=== PATIENT | female | born 1940 | race Caucasian/White ===

== ENCOUNTER 2018-03-28 11:43 | Inpatient (IN) | payer MEDICARE, OTHER ==
--- NOTE | 2018-03-28 12:11 | ED ---
Head Injury - HPI Summary HPI Summary: This patient is a 77 year old F presenting to [facility] accompanied by her aide with a chief complaint of fall and associated head injury at an unknown time ( LKW 1600 03/27/18). Pt does not know what happened to her. Pt lives in [facility]. Pt fell but does not remember the event. Pt has a bump on her head but denies BONE. She denies neck pain. The pt endorses general body pain, but she attributes this to being moved around so much. This pt was found in the bathroom on the ground this AM. Pt was unresponsive upon aide arrival. The aide believes she may have been on the floor all night, as she was not in her pajamas. This week, the pt has displayed increased confusion, decreased mobility , and decreased appetite from baseline. - History Of Current Complaint Chief Complaint: EDSyncope Stated Complaint: FALL Time Seen by Provider: 03/28/18 11:54 Hx Obtained From: Patient, Family/Yard Supervisor [employer] Mechanism Of Injury: Direct Blow, Unknown Onset/Duration: Still Present Severity Currently: Mild Severity Initially: Mild Pain Intensity: 0 Pain Scale Used: 0-10 Numeric Location of Head Injury: Temporal Character: Other: - no pain Associated Signs And Symptoms: LOC Duration Unknown, Confusion, Memory Loss, Swelling - Allergies/Home Medications Allergies/Adverse Reactions: Allergies Allergy/AdvReac Type Severity Reaction Status Date / Time Penicillins Allergy Intermediate Hives Verified 03/28/18 15:09 Sulfa (Sulfonamide Allergy Intermediate Hives Verified 03/28/18 15:09 Antibiotics) PMH/Surg Hx/FS Hx/Imm Hx Endocrine/Hematology History: Reports: Hx Anemia Musculoskeletal History: Reports: Hx Arthritis, Hx Back Problems - DDD Sensory History: Reports: Hx Cataracts, Hx Contacts or Glasses Denies: Hx Deafness Opthamlomology History: Reports: Hx Cataracts, Hx Contacts or Glasses EENT History: Denies: Hx Deafness Psychiatric History: Denies: Hx Autism - Cancer History Hx Chemotherapy: No Hx Radiation Therapy: No - Surgical History Surgery Procedure, Year, and Place: TONSILLECTOMY, CATARACT SURGERY Infectious Disease History: No Infectious Disease History: Denies: Traveled Outside the [place] in Last 30 Days - Family History Known Family History: Positive: Cardiac Disease - MOTHER PA 84, Renal Disease - KIDNEY FAILURE, Other - SCOLIOSIS - Social History Occupation: Retired Lives: Assisted Living Alcohol Use: None Hx Substance Use: No Substance Use Type: Reports: None Hx Tobacco Use: No Smoking Status (MU): Former Smoker Review of Systems Negative: Fever Positive: Other - decreased appetite Positive: no symptoms reported Positive: Edema - BLE. Negative: Arthralgia - neck Positive: Bruising - head, left side, hematoma Neurological: Other - amnesia, confusion, unresponsive (resolved) Positive: Syncope. Negative: Headache All Other Systems Reviewed And Are Negative: Yes Physical Exam - Summary Physical Exam Summary: Appearance: The patient is cachectic in no acute distress and in no acute pain. Skin: The skin is warm and dry and skin color reflects adequate perfusion. There is a cephalohematoma on the left temporal area. HEENT: The head is normocephalic. There is a cephalohematoma on the left temporal area. The pupils are equal and reactive. The conjunctivae are clear and without drainage. Nares are patent and without drainage. Mouth reveals moist mucous membranes and the throat is without erythema and exudate. The external ears are intact. The ear canals are patent and without drainage. The tympanic membranes are intact. Neck: The neck is supple with full range of motion and non-tender. There are no carotid bruits. There is no neck vein distension. Respiratory: Chest is non-tender. Lungs are clear to auscultation and breath sounds are symmetrical and equal. Cardiovascular: Heart is regular rate and rhythm. There is no murmur or rub auscultated. There is bilateral peripheral edema and pulses are symmetrical and equal. Abdomen: The abdomen is soft and non-tender. There are normal bowel sounds heard in all four quadrants and there is no organomegaly palpated. Musculoskeletal: There is no back tenderness noted. Extremities are non-tender with full range of motion. There is good capillary refill. There is bilateral peripheral edema or calf tenderness elicited. Neurological: Patient is alert and oriented to person, place and time. The patient has symmetrical motor strength in all four extremities. Cranial nerves are grossly intact. Deep tendon reflexes are symmetrical and equal in all four extremities. Psychiatric: The patient has an appropriate affect and does not exhibit any anxiety or depression. Triage Information Reviewed: Yes Vital Signs On Initial Exam: Initial Vitals Temp Pulse Resp BP Pulse Ox 96.0 F 69 20 131/7 96 03/28/18 11:53 03/28/18 11:53 03/28/18 11:53 03/28/18 11:53 03/28/18 11:53 Vital Signs Reviewed: Yes - [place] Coma Scale Best Eye Response: 4 - Spontaneous Best Motor Response: 6 - Obeys Commands Best Verbal Response: 5 - Oriented Coma Scale Total: 15 Diagnostics - Vital Signs Vital Signs Temp Pulse Resp BP Pulse Ox 03/28/18 11:53 96.0 F 69 20 131/7 96 - Laboratory Result Diagrams: 03/29/18 05:12 03/29/18 05:12 Lab Statement: Any lab studies that have been ordered have been reviewed, and results considered in the medical decision making process. - Radiology CXR Radiology Interpretation Completed By: Radiologist Summary of Radiographic Findings: COPD. No active cardiopulmonary disease. Dr. Gallegos has reviewed this report. - CT Brain CT Interpretation Completed By: Radiologist Summary of CT Findings: No acute intracranial pathology. Chronic small vessel ischemic change. Dr. Gallegos has reviewed this report. - EKG 1221 Cardiac Rate: NL - 64 EKG Rhythm: 1st Degree HB ST Segment: Normal Ectopy: None Summary of EKG Findings: 1st degree HB, no STEMI. Head Injury Course/Dx Course Of Treatment: Ms. Sam was brought to the emergency department for weakness. She apparently has been getting weaker for a couple of days and being less active and eating and drinking less. She was last seen at 1600 hrs. yesterday when her aide left. When the morning aide arrived today, she found her in the bathroom on the floor still dressed in clothing from yesterday. The patient is unclear what happened and how long she was there. She was found to be hyponatremic and dehydrated with a mildly elevated CPK. The hospitalist service was asked to evaluate her and hydrate her slowly - Diagnoses Provider Diagnoses: Severe dehydration, Hyponatremia, Syncope - Physician Notifications Discussed Care Of Patient With: Desirae Fu Time Discussed With Above Provider: 13:05 Instructed by Provider To: Other - Accepts admission. Discharge - Sign-Out/Discharge Documenting (check all that apply): Patient Departure - admit - Discharge Plan Condition: Fair Disposition: ADMITTED TO [facility] - Billing Disposition and Condition Condition: FAIR Disposition: Admitted to [facility] - Attestation Statements Document Initiated by Scribe: Yes Documenting Scribe: Mc Sebastian Provider For Whom Scribe is Documenting (Include Credential): Dr. Jagjit Gallegos MD Scribe Attestation: I, Mc Sebastian, scribed for Dr. Jagjit Gallegos MD on 03/29/18 at 1904. Scribe Documentation Reviewed: Yes Provider Attestation: The documentation as recorded by the Mc wu accurately reflects the service I personally performed and the decisions made by me, Dr. Jagjit Gallegos MD
[2018-03-28 12:45] LABS: Hematocrit 40 % (35-47); Hemoglobin 13.6 g/dl (12.0-16.0); Mean Corpuscular HGB Conc 34 g/dl (31-36); Mean Corpuscular Hemoglobin 32 pg (27-31); Mean Corpuscular Volume 95 fL (80-97); Red Blood Count 4.23 10^6/ul (4.00-5.40); Red Cell Distribution Width 13 % (10.5-15)
[2018-03-28 12:48] LABS: INR 0.91 (0.77-1.02)
[2018-03-28 12:55] LABS: EGFR Non-African American 28.9 (>60)
[2018-03-28] MEDS ORDERED: NS 0.9% 1000 ML* 1,000 ML IV ONE (13:02)
[2018-03-28 13:08] LABS: ABS Basophils 0 10^3/ul (0-0.2); ABS Eosinophils 0 10^3/ul (0-0.6); ABS Lymphocytes 0.2 10^3/ul (1.0-4.8); ABS Monocytes 0.3 10^3/ul (0-0.8); ABS Neutrophils 4.5 10^3/ul (1.5-7.7); ABS Nucleated RBC 0 10^3/ul; Eosinophil % 0 % (0-6); Lymphocyte % 4.2 % (25-47); Mean Platelet Volume 10.7 fL (7.4-10.4); Nucleated Red Blood Cells % 0.2; Platelet Count 48 10^3/ul (150-450)
[2018-03-28] MEDS ORDERED: Ondansetron INJ* 2 MG/ML VIAL IV PRN (15:02)
[2018-03-28] MEDS ORDERED: Acetaminophen TAB* 325 MG PO PRN (15:02)
[2018-03-28] MEDS: NS 0.9% 1000 ML* 1,000 ML IV SCH (17:52)
--- NOTE | 2018-03-28 20:16 | HP ---
CC: Dr. Vegas * HOSPITAL MEDICINE HISTORY AND PHYSICAL: DATE OF ADMISSION: 03/28/18 PRIMARY CARE PHYSICIAN: Dr. Vegas. ATTENDING PHYSICIAN: Desirae Fu DO * (dictation provided by Katie Poe NP ) CHIEF COMPLAINT: Found on floor. HISTORY OF PRESENT ILLNESS: Ms. Sam is a 77-year-old female with a past medical history of lymphedema who presents today to the hospital with concern for being found on the floor. Ms. Sam was reportedly seen by her aide yesterday. She resides at [facility]. The patient denies any particular complaint yesterday and reports that she was at her [facility]. In general, she has been having trouble eating for some time. She describes feeling gaseous with bloating and some diarrhea at times. She has had a 20-pound weight loss over the past year related to this. She saw Dr. Vegas about a month ago and she recommended Gastroenterology followup The patient states that they wanted to do a "breath test" but after discussing with Dr. Vegas, the plan was to treat empirically with medication to help with her feelings of gaseousness and bloating. It sounds like from the description that perhaps this was treatment for SIBO, though I cannot confirm this as the patient does not know the name of the medication. Ms. Sam states that her last memory is thinking that she went to bed last night; however, her aide found her this morning lying on the floor in the bathroom. She was wearing the same clothes she had been wearing yesterday, so it seemed that she had not changed into her pajamas. The patient has no recollection of any of these events; however, she does remember being transported to the hospital via ambulance. The patient states that she feels okay now and has no complaint. She denies any recent fevers, chills, chest pain , shortness of breath. She does have this problem with eating and gaseousness as described. She also has chronic significant severe lower extremity edema related to lymphedema. In the emergency room, Ms. Sam had labs which showed that she had sodium of 123. Her BUN and creatinine are elevated at 43 and 1.71 respectively. Her lactic acid is 2.6. Troponin 0.05. Her LFTs are elevated with AST 54, ALT 65, alk phos 117. Her CK is mildly elevated at 630. Her TSH is 9.10. Her platelets are low at 48,000. She states this a chronic problem. Labs are reviewed from Dr. Vegas's office from October or November, which showed that her platelet count was 99,000 and that her sodium and LFTs are normal. PAST MEDICAL HISTORY: 1. Lymphedema. 2. Cataract surgery. 3. A 20-pound weight loss over the past year. MEDICATIONS: Outpatient are hydrochlorothiazide 12.5 mg every 3 days per the patient's report. ALLERGIES: To PENICILLIN and SULFA. FAMILY HISTORY: The patient reports that her mother to related to Alzheimer's and dad related to liver disease in his 60s. SOCIAL HISTORY: The patient is a former smoker, but quit in the 1970s. No report of alcohol or drug use. She states that her niece, Carolee, would be the healthcare proxy. REVIEW OF SYSTEMS: A 14-point review of systems was completed with Ms. Sam and all those not mentioned above were negative. PHYSICAL EXAMINATION GENERAL: Ms. Sam is lying in the bed. She is a cachectic appearing female with significant lower extremity edema. She is in no acute distress. VITAL SIGNS: Temperature 96.0, pulse rate 72, respiratory rate 9, O2 saturation 95% on room air, and blood pressure 148/76. LUNGS: Clear to auscultation bilaterally with no accessory muscle use and good aeration. HEART: S1, S2. No murmur, rub, or gallop and regular. ABDOMEN: Soft and nontender throughout with bowel sounds positive x4. EXTREMITIES: Positive for 3+ pitting edema up to the level of the thighs. No skin breakdown noted. NEURO: She is alert. She is oriented x3. She moves all extremities equally. There is no facial asymmetry or focal weakness. Extraocular movements are intact. LABORATORY DATA/DIAGNOSTIC STUDIES: WBC 5.0, hemoglobin 13.6, hematocrit 40, platelet count 48,000. INR 0.91. Sodium 123, potassium 4.5, chloride 85, serum bicarbonate 29, BUN 43, creatinine 1.71, glucose 95. Lactic acid 2.6. Troponin 0.05. AST 54, ALT 65, alk phos 117. CK 630. TSH 9.10. CT brain shows no acute abnormality. Chest x-ray shows no acute abnormality. EKG shows sinus rhythm with a heart rate of about 60 and no evidence of ischemia. ASSESSMENT AND PLAN: Ms. Sam is a 77-year-old female with a past medical history of lymphedema who presents today to the hospital with concern for being found on the floor. The events surrounding this are unclear as the patient has no recollection. She has been found to have multiple abnormalities including a mildly elevated troponin and mildly elevated CK, mildly elevated LFTs, hyponatremia and thrombocytopenia. Our plans for inpatient admission as I expect the length of stay to be greater than 2 days for the followin. Found on floor: It is unclear what led to this fall. She does have hyponatremia, but is not dramatically low and I doubt that it would contribute to an altered mental status. In any event, her mental status is at baseline now. I question whether or not she may have had an arrhythmia. We will be monitoring her on telemetry. She will have a transthoracic echocardiogram. She has no evidence of infection. It is possible that due to her frailty she fell and hit her head and maybe she was confused and unable to get up, but again these events are unclear. 2. Hyponatremia. Plan to continue with IV hydration and recheck labs in the a.m. She is on hydrochlorothiazide outpatient. I questioned whether or not this is contributing to the low sodium. 3. Thrombocytopenia. It is chronic, but worse than baseline. The patient states that she had followed Dr. Gonsalez in the past and he had done tests, which were "inconclusive." We can follow up again with Hematology as indicated. 4. Lymphedema. The patient has had chronic lymphedema but there is no clear underlying diagnosis. She states it is at baseline. I will be checking a transthoracic echocardiogram. 5. Elevated liver function tests. I suspect this is secondary to her fall. We will repeat CMP in the a.m. As her abdomen is completely nontender and benign, no indication for liver ultrasound unless her LFTs continue to rise. 6. Elevated troponin. Again, I suspect this is secondary to her demand ischemia, but we will continue to trend and follow the telemetry as well as check an echocardiogram. 7. DVT prophylaxis with heparin subcu. 8. Code status is DNR. TIME SPENT: Approximately 60 minutes were spent on the admission of this patient, more than half of the time was spent with the patient at the bedside reviewing the events leading up to this hospitalization, performing the physical examination, and reviewing my plan of care. KATIE POE NP [id number]/[facility] #: [id number] NIDHI
[2018-03-28] MEDS: Heparin VIAL(*) 5000 UNITS/ML VIAL (FIVE THOUSAND) SUBCUT SCH (20:31)
[2018-03-29] MEDS ORDERED: NS 0.9% 500 ML* @ Wide Open(Bolus) 500ml IV ONE (04:30)
--- NOTE | 2018-03-29 04:30 | PN ---
Hospitalist Progress Note Date of Service: 03/29/18 ctbs due to sbp was 60s but not tachycardia. pt is aao times three despite of low sbp. she is not on any b emily/calcium channel emily currently. f/s wnl as well as sat but staff informed this blog writer at bedside that unable to obtain oral temp ---> she is a mouth breather---> rectal temp was 92. pt was transferred to icu due to hypothermia/hypotension. she got bolus ns 250 cc twice on the floor and one ns 500 cc in the icu. repeat sbp 70s. stat labs showed bun/creatinine around her baseline but her hg dropped from 13 to 8.6---> one unit of prbc was ordered due to hypotension. ekg/trop were neg of acute change and her chem were near her baseline---> etiology of her dropped hg was not clear. no gross gib though. she looks cachetic but + 3-4 pedal edema with lymphedema as part of her hx. ? ct of abd/pelvis needed to further eval retroperitonal bleeding. pt is madrigal cx. lung sounds decreased but chest x ray ordered. her wbc and lactic acid came back wnl no abx started yet. vital sbp 60-70 hr 60s-70 rr 12 rectal temp 92 general pale looking heart s1 s2 rrr lung decreased b/s but no rales or wheezing heard abd soft nt neuro aao times nonfocal a/p 1 profound hypothermia etiology of this unclear pt is madrigal cx just in case - no abx given will moniter cbc trend for now 2 hypotension ---> prob due to dropped of hg ns bolus multiple times but sbp still low repeat hg was halfed compared to admission but bun/creatinine has been around her baseline - ns iv bolus given - prbc with one unit 3 b/l severe leg edema with lymphedema hx overall cachetic looking - consider ct of abd/pelvis to r/o retroperonteal bleed as a part of her leg edema and dropped hg total critical care time 45 min upon transfer to icu
[2018-03-29 04:41] LABS: ABS Basophils 0 10^3/ul (0-0.2); ABS Eosinophils 0 10^3/ul (0-0.6); ABS Lymphocytes 0.3 10^3/ul (1.0-4.8); ABS Monocytes 0.1 10^3/ul (0-0.8); ABS Neutrophils 1.8 10^3/ul (1.5-7.7); ABS Nucleated RBC 0 10^3/ul; Eosinophil % 0.1 % (0-6); Hematocrit 26 % (35-47); Hemoglobin 8.7 g/dl (12.0-16.0); Lymphocyte % 12.4 % (25-47); Mean Corpuscular HGB Conc 34 g/dl (31-36); Mean Corpuscular Hemoglobin 32 pg (27-31); Mean Corpuscular Volume 96 fL (80-97); Mean Platelet Volume 12.1 fL (7.4-10.4); Nucleated Red Blood Cells % 0.7; Platelet Count 34 10^3/ul (150-450); Red Cell Distribution Width 13 % (10.5-15); White Blood Count 2.3 10^3/ul (3.5-10.8)
[2018-03-29 04:50] LABS: EGFR Non-African American 30.3 (>60)
[2018-03-29 05:32] LABS: ABS Basophils 0 10^3/ul (0-0.2); ABS Eosinophils 0 10^3/ul (0-0.6); ABS Lymphocytes 0.3 10^3/ul (1.0-4.8); ABS Monocytes 0.1 10^3/ul (0-0.8); ABS Neutrophils 1.7 10^3/ul (1.5-7.7); ABS Nucleated RBC 0 10^3/ul; Eosinophil % 0.1 % (0-6); Hematocrit 27 % (35-47); Hemoglobin 8.9 g/dl (12.0-16.0); Lymphocyte % 15.7 % (25-47); Mean Corpuscular HGB Conc 34 g/dl (31-36); Mean Corpuscular Hemoglobin 32 pg (27-31); Mean Corpuscular Volume 96 fL (80-97); Mean Platelet Volume 10.7 fL (7.4-10.4); Nucleated Red Blood Cells % 0.7; Platelet Count 31 10^3/ul (150-450); Red Blood Count 2.76 10^6/ul (4.00-5.40); Red Cell Distribution Width 14 % (10.5-15); White Blood Count 2.1 10^3/ul (3.5-10.8)
[2018-03-29 05:43] LABS: EGFR Non-African American 30.5 (>60)
[2018-03-29] MEDS: Heparin VIAL(*) 5000 UNITS/ML VIAL (FIVE THOUSAND) SUBCUT SCH (07:05)
[2018-03-29 08:44] LABS: Urine Appearance Cloudy; Urine Blood 1+ (Negative); Urine Color Yellow; Urine Ketones Negative (Negative); Urine Protein Negative (Negative); Urine Red Blood Cell Trace(0-2/hpf) (Absent); Urine Specific Gravity 1.012 (1.010-1.030); Urine Urobilinogen Negative (Negative); Urine White Blood Cell Absent (Absent)
[2018-03-29] MEDS: NS 0.9% 1000 ML* 1,000 ML IV SCH (08:49)
[2018-03-29] MEDS ORDERED: Heparin VIAL(*) 5000 UNITS/ML VIAL (FIVE THOUSAND) SUBCUT SCH (10:00)
[2018-03-29 10:39] LABS: Urine Appearance Cloudy; Urine Blood 1+ (Negative); Urine Color Yellow; Urine Ketones Negative (Negative); Urine Protein Negative (Negative); Urine Red Blood Cell Trace(0-2/hpf) (Absent); Urine Specific Gravity 1.012 (1.010-1.030); Urine Urobilinogen Negative (Negative); Urine White Blood Cell Absent (Absent)
[2018-03-29] MEDS ORDERED: Morphine ORAL CONCENTRATE* 5 MG/0.25 ML ORAL.SYRIN PO PRN (13:26)
[2018-03-29] MEDS ORDERED: LORazepam TAB(*) 0.5 MG PO PRN (13:28)
[2018-03-29] MEDS ORDERED: Atropine 1% (ORAL/SL)* 15 ML BTL SL PRN (13:29)
[2018-03-29] MEDS ORDERED: Prochlorperazine TAB* 10 MG PO PRN (13:30)
--- NOTE | 2018-03-29 13:40 | PN ---
Subjective Date of Service: 03/29/18 Interval History: Pt seen and examined this AM and spoke with family. Pt being transfused at the time. Meds and labs reviewed. Received a page from RN (Monet) ~[phone] who mentioned that pt had increased WOB after transfusion and that family has spoken with Dr. Tyson and wanted pt to be made STOCK RECEIVER/End-of-life care only. MOLST form reportedly updated. CC: N/A ROS: Pt unable to reliably provide 14 point ROS PHYSICAL EXAM: GEN APPEARANCE: Awake, not in acute distress, frail, thin elderly woman HEENT: NC/AT, PERRLA, moist oral mucosa, (-) throat erythema NECK: Soft, supple, (-) cervical LAD, (-)JVD HEART: S1S2 WNL, RRR, No MRG CHEST: CTA, BL, GAE, No W/R/R ABD: Soft, ND/NT, NABS 4x Q EXT: No C/C/ SKIN: Warm to touchBLLE edema, non-pitting, however skin appears to be crenated from baseline lymphedema PSYCH: No active psychosis, hallucinations, depression, SI/HI Objective Active Medications: Acetaminophen (Tylenol Tab*) 650 mg PO Q6H PRN PRN Reason: PAIN Atropine Sulfate (Atropine 1% (Oral/Sl)*) 2 drop SL Q4H PRN PRN Reason: SIALORRHEA Lorazepam (Ativan Tab(*)) 0.5 mg PO Q6H PRN PRN Reason: Anxiety/Agitation Morphine Sulfate (Morphine Oral Concentrate*) 5 mg PO Q2H PRN PRN Reason: Pain/SOB/Insomnia/Agitation Ondansetron HCl (Zofran Inj*) 4 mg IV Q6H PRN PRN Reason: NAUSEA Prochlorperazine (Compazine Tab*) 10 mg PO Q6HR PRN PRN Reason: NAUSEA/VOMITING Vital Signs - 8 hr 03/29/18 03/29/18 03/29/18 05:45 06:00 06:01 Temperature Pulse Rate 61 55 62 Respiratory 13 17 9 Rate Blood Pressure 64/34 68/35 (mmHg) O2 Sat by Pulse 92 91 88 Oximetry 03/29/18 03/29/18 03/29/18 06:15 06:30 06:45 Temperature 97.2 F Pulse Rate 57 66 70 Respiratory 10 16 15 Rate Blood Pressure 70/34 60/35 79/41 (mmHg) O2 Sat by Pulse 91 91 92 Oximetry 03/29/18 03/29/18 03/29/18 07:00 07:01 07:15 Temperature Pulse Rate 73 78 74 Respiratory 14 14 16 Rate Blood Pressure 84/42 85/41 (mmHg) O2 Sat by Pulse 90 90 95 Oximetry 03/29/18 03/29/18 03/29/18 07:30 07:42 07:45 Temperature 97.3 F Pulse Rate 78 81 Respiratory 19 16 Rate Blood Pressure 87/45 90/45 (mmHg) O2 Sat by Pulse 93 91 Oximetry 03/29/18 03/29/18 03/29/18 08:00 08:01 08:15 Temperature Pulse Rate 83 86 79 Respiratory 16 17 14 Rate Blood Pressure 91/47 99/48 (mmHg) O2 Sat by Pulse 93 90 89 Oximetry 03/29/18 03/29/18 03/29/18 08:30 08:45 09:00 Temperature 95.0 F 95.0 F Pulse Rate 77 75 75 Respiratory 14 14 15 Rate Blood Pressure 95/45 89/44 92/43 (mmHg) O2 Sat by Pulse 90 92 92 Oximetry 03/29/18 03/29/18 03/29/18 09:01 09:15 09:30 Temperature 95.0 F 95.0 F 95.0 F Pulse Rate 76 77 77 Respiratory 16 15 14 Rate Blood Pressure 94/48 106/52 (mmHg) O2 Sat by Pulse 91 92 90 Oximetry 03/29/18 03/29/18 03/29/18 09:45 10:00 10:01 Temperature 94.8 F 94.8 F 94.8 F Pulse Rate 79 77 79 Respiratory 15 14 14 Rate Blood Pressure 97/51 106/48 (mmHg) O2 Sat by Pulse 91 89 89 Oximetry 03/29/18 03/29/18 03/29/18 10:15 10:30 10:45 Temperature 95.0 F 95.0 F 95.4 F Pulse Rate 78 81 78 Respiratory 14 17 16 Rate Blood Pressure 98/48 101/50 95/48 (mmHg) O2 Sat by Pulse 90 88 89 Oximetry 03/29/18 03/29/18 03/29/18 11:00 11:01 11:15 Temperature 95.5 F 95.5 F 95.7 F Pulse Rate 80 80 83 Respiratory 17 18 17 Rate Blood Pressure 96/52 110/53 (mmHg) O2 Sat by Pulse 95 94 94 Oximetry Oxygen Devices in Use Now: Nasal Cannula Result Diagrams: 03/29/18 05:12 03/29/18 05:12 Assess/Plan/Problems-Billing Assessment: Pt seen this AM. Admitted S/P fall and noted to have increasing troponins likely from demand ischemia given troponins continue to rise as well as MB fraction of 8.6% in the setting of acute renal failure. Pt also has some mild rhabomyolysis, elevated TSH, and hypovolemic hyponatremia. - Patient Problems (1) Comfort measures only status Current Visit: Yes Status: Acute Code(s): Z51.5 - ENCOUNTER FOR PALLIATIVE CARE SNOMED Code(s): 31066080668022 Comment: -Will D/C any further W/U and unnecessary medications -Will place on Comfort measures only meds Status and Disposition: -For possible transfer to floors when needed; Monet (RN) will touch base with Dr. Tyson and family to see if family is amenable; will await any further input from ICU team
[2018-03-29 18:34] VITALS: BP 61/41
--- NOTE | 2018-03-29 22:41 | CONS ---
PULMONARY CONSULT REPORT: DATE OF CONSULT: 03/29/18 CONSULTATION REQUESTED BY: Nathaniel Keith MD REASON FOR CONSULT: Evaluation of hypoxemic respiratory failure. HISTORY OF PRESENT ILLNESS: The patient is a 77-year-old female with history of chronic lymphedema, dementia, recent weight loss, and cachexia, who resides in [facility]. The patient was brought in for evaluation of fall. The patient was found to be on lying on the floor. She has been having poor p.o. intake recently with 20-pound weight loss. She has been having bloating and diarrhea recently. Aides found her in the morning lying on the floor in the bathroom. She was wearing the same clothes she has been wearing 1 day prior. The patient did not have any recollection of the events. She was brought in for further evaluation. She was found to be having low sodium of 123 in the emergency room with elevated BUN and creatinine consistent with dehydration. She also was found to be hypotensive. Her CK is elevated. She was found to have thrombocytopenia and also anemia. The patient was admitted to the floor, was transferred to the ICU overnight for worsening tachycardia and hypotension. She was also found to be hypothermic with temperature of 92. She had received a fluid bolus of 250 cc on the floor and has received another 500 cc bolus in the ICU. Her hemoglobin was seemed to be dropped acutely from 13 to 8.6. She received 1 unit of PRBC. The patient continued to have hypotension while in the emergency room. No acute ST-T changes were seen on the EEG. She was not found to have acute bleeding. The patient continued to remain hypotensive, hypothermic, and hypoxemic. She was initiated on high flow FiO2. Critical care consultation was requested. The patient is not able to provide any history. She appears cachectic. She was slightly more alert when she came in; however, is very lethargic at the time of my evaluation. She was placed on high-flow O2, chest x-ray was ordered. Family presented at bedside during this time. Niece is her healthcare proxy. She has provided more history regarding the patient's recent course. She has been significantly deteriorating. Has been having poor oral intake, has been having issues with significant diarrhea. PAST MEDICAL HISTORY: 1. Lymphedema. 2. Dementia. 3. Cataract surgery. 4. Weight loss recently. 5. Hypertension. MEDICATIONS: Hydrochlorothiazide. ALLERGIES: PENICILLIN and SULFA. FAMILY HISTORY: Mother of Alzheimer's disease, father related to liver disease. SOCIAL HISTORY: Former smoker, quit in 1969. No alcohol or drug abuse. Her niece, Carolee, is her healthcare proxy, who is at bedside. REVIEW OF SYSTEMS: Unable to obtain review of systems given the patient's condition. PHYSICAL EXAM: The patient cachectic appearing female in bed, in no apparent distress. She is not tachypneic. Vital Signs: Temperature 96.4 after warm blankets and warm IV fluids in ICU, heart rate 92 beats per minute, respiratory rate 19, O2 sat 71% on 100% FiO2, blood pressure 74/44. HEENT: Pupils equal, reactive to light. Mucous membranes moist. Lungs: Diminished air entry, left greater than right. Cardiovascular: S1, S2 present, tachycardic. No murmurs. Abdomen: Soft, nontender. Extremities: Chronic lymphedema changes. Skin: No rash. DIAGNOSTIC STUDIES/LAB DATA: WBC count 2.1, hemoglobin 8.9, hematocrit 27, platelet count 31. Sodium 125, potassium 4.7, chloride 93, bicarb 25, BUN 51, creatinine 1.63, troponin 0.10 at 4:22, repeat value 0.16, albumin significantly decreased at 2.5. UA did not show evidence of acute infection. Chest x-ray from 4:30 this morning was reviewed in comparison with most recent x - ray showed evidence of air space opacities in the left lung. Repeat chest x-ray from 11 this morning showed evidence of progressive atelectasis of left lung with left pleural effusion, volume loss, and small apical pneumothorax. EKG did not reveal any acute ST-T wave changes. IMPRESSION AND RECOMMENDATIONS: 77-year-old female with progressively worsening course recently, was sent in from [facility] for evaluation after found on floor. The patient was found to be hyponatremic, hypotensive with progressively worsening hypoxemia. The patient also noted to have significant drop in hemoglobin, received 1 unit of pRBC transfusion. She was placed on high flow for hypoxic resp failure. Current findings and prognosis were discussed in detail with the family. Family did not want any aggressive measures. Malorielaurel is her HCP They have requested comfort measures at this time. They do not also want high flow O2, which would be stopped and transitioned to nasal cannula. They requested IV fluids and antibiotics to be also stopped. She is not in any distress at this time; however, will use morphine as needed to relieve air hunger and for comfort. Thank you for allowing me to participate in the care of your patient. D/w Dr. Keith who is in agreement. [id number]/[facility] #: [id number]
== END 2018-03-29 18:21 | disposition expired | DRG 314 ==
LOC: ED 11:43 → MEDTELE 15:00 → ICU 03-29 04:09
PROVIDERS: ADMIT Hospitalist; ATTEND Internal Medicine
PROC: 30233N1 Transfusion of Nonautologous Red Blood Cells into Peripheral Vein, Percutaneous Approach (ICD-10-PCS; principal; 2018-03-29)
DX: I95.9 Hypotension, unspecified (principal); J96.01 Acute respiratory failure with hypoxia; E87.1 Hypo-osmolality and hyponatremia; Z68.1 Body mass index [BMI] 19.9 or less, adult; J98.11 Atelectasis; J90 Pleural effusion, not elsewhere classified; I24.8 Other forms of acute ischemic heart disease; R64 Cachexia; E86.0 Dehydration; D64.9 Anemia, unspecified; F03.90 Unspecified dementia, unspecified severity, without behavioral disturbance, psychotic disturbance, mood disturbance, and anxiety; Z66 Do not resuscitate; R68.0 Hypothermia, not associated with low environmental temperature; F44.89 Other dissociative and conversion disorders; D47.3 Essential (hemorrhagic) thrombocythemia; Z51.5 Encounter for palliative care; I89.0 Lymphedema, not elsewhere classified; R74.8 Abnormal levels of other serum enzymes; I10 Essential (primary) hypertension; Z79.899 Other long term (current) drug therapy; Z88.0 Allergy status to penicillin; Z88.2 Allergy status to sulfonamides; Z83.79 Family history of other diseases of the digestive system; Z84.89 Family history of other specified conditions; Z87.891 Personal history of nicotine dependence
CPT/HCPCS: 36415; 70450; 71045; 80048; 80053; 81003; 81015; 82140; 82550; 82553; 82570; 83605; 83735; 83935; 84133; 84300; 84439; 84443; 84484; 84540; 85025; 85060; 85610; 86850; 86900; 86901; 86922; 87040; 93005; 99283; J1644; P9040